=== PATIENT | female | born 1995 | race Caucasian/White ===

== ENCOUNTER 2021-01-30 16:44 | Inpatient (IN) | payer OTHER ==
[~2021-01-30] VITALS: Ht 160 cm; Wt 147.4 kg
[2021-01-30 17:48] LABS: HEMOGLOBIN 13.7 gm/dl (12.3-15.3); RED BLOOD COUNT 4.12 M/UL (4.00-5.10); WHITE BLOOD COUNT 9.5 K/UL (4.5-11.0)
[2021-01-30] MEDS ORDERED: METOPROLOL SUCC25 MG PO (19:07)
[2021-01-30] MEDS ORDERED: PRENATAL VITAM1 EAC8 PO (19:08)
[2021-01-31] MEDS ORDERED: HYDROCODON-ACE1 EAC6 PO (15:06)
[2021-01-31] MEDS ORDERED: COLACE 100MG C100 MG PO (15:06)
[2021-01-31] MEDS ORDERED: IBUPROFEN600 MG PO (15:06)
[2021-02-01 06:29] LABS: HEMOGLOBIN 11.6 gm/dl (12.3-15.3)
== END 2021-02-03 13:51 | disposition home or self-care (01) | DRG 788 ==
LOC: GENOP 16:44 → OB 17:03
PROVIDERS: ADMIT Obstetrics & Gynecology
PROC: 10D00Z1 Extraction of Products of Conception, Low, Open Approach (ICD-10-PCS; principal; 2021-01-30)
PROC: 10907ZC Drainage of Amniotic Fluid, Therapeutic from Products of Conception, Via Natural or Artificial Opening (ICD-10-PCS; 2021-01-30)
DX: O13.4 Gestational [pregnancy-induced] hypertension without significant proteinuria, complicating childbirth (principal); O99.214 Obesity complicating childbirth; E66.9 Obesity, unspecified; Z3A.38 38 weeks gestation of pregnancy; Z37.0 Single live birth; O76 Abnormality in fetal heart rate and rhythm complicating labor and delivery
CPT/HCPCS: 36415; 81001; 82800; 85014; 85018; 85025; 85461; 86850; 86900; 86901; 90471; C1894; C9113; J0690; J1650; J1885; J2001; J2270; J2274; J2405; J2590; J2790; J2795; J3010; J7120; U0003